=== PATIENT | female | born 1965 | race Caucasian/White ===

== ENCOUNTER → 2020-12-27 | Outpatient (CLI) | payer OTHER | LOC: MRI 10:21 → EDSTATUS 14:33 | PROVIDERS: ATTEND Internal Medicine | DX: M47.816 Spondylosis without myelopathy or radiculopathy, lumbar region (principal); M51.26 Other intervertebral disc displacement, lumbar region; M51.36 Other intervertebral disc degeneration, lumbar region; G89.29 Other chronic pain; M25.78 Osteophyte, vertebrae; M48.061 Spinal stenosis, lumbar region without neurogenic claudication ==

== ENCOUNTER → 2021-01-02 | Outpatient (CLI) | payer OTHER ==
[~2021-01-02] VITALS: Ht 175.3 cm; Wt 79.4 kg
[~2021-01-02] MED LIST: ADVIL200 M1 PO; LEXAPRO 10 MG T10 M2 PO; LYRICA 75 MG CA75 MG PO; MIRAPEX0.5 MG PO; NABUMETONE 500500 M2 PO; NEXIUM40 MG PO; ROPINIROLE HCL0.5 MG PO; STELARA90 MG/1 ML SUBQ
[2021-01-02 10:04] VITALS: BP 133/86
--- NOTE | 2021-01-02 10:37 | NUR ---
Pain Clinic Assessment: 1. History of Osteoarthritis: LOW BACK PSORIATIC History of Rheumatoid Arthritis: Not Applicable 2. Height: 5 ft. 9 in. 175.3 cm. Weight: 175.0 lb. oz. 79.380 kg. Patient's BMI: 25.8 3. Vital Signs: BP: 133/86 Pulse: 59 Resp: 14 Temp: 02 Sat: 97 ECG Mon: 4. Pain Intensity: 7 5. Fall Risk: Dizziness: N Needs help standing or walking: N Fallen in the last 3 months: N Fall risk comments: 6. Patient on Blood Thinner: None 7. History of Hypertension: N 8. Opioid Therapy greater than 6 weeks: N Opiate Contract Signed: 9. Risk Assessment Tool Provided: brook 10. Functional Assessment Tool: 11. Recreational Drug Use: Never Drug Type: Tobacco Use: Never Smoker Tobacco Type: Amount or Packs/day: How Many Years: Alcohol Use: Yes Frequency: Special Occasions Quant:
--- NOTE | 2021-01-10 10:47 | HPC ---
[facility] [address] [address] PAIN MANAGEMENT CONSULTATION Name: ISLAMSTEPHANIE SANDERSONNE Room #: REG [facility].#: [id number] Admission: 01/02/21 Attend Phys: Jacoby Cohen DO Discharge: Date of : 67 Report #: [id number] THIS REPORT FOR: cc: Franklyn Souza MD [facility] Franklyn Souza MD [facility] Jacoby Cohen DO ~ cc: Christi Antonio NP DATE OF SERVICE: 01/02/2021 REFERRING PHYSICIAN: Nurse practitioner, Christi Antonio. CHIEF COMPLAINT: Low back pain, bilateral buttock and posterolateral thigh pain. HISTORY OF PRESENT ILLNESS: As you know, the patient is a very pleasant 55-year-old female who reports ongoing low back pain, bilateral upper buttock pain that began 05/19/2020. She denies specific injury or trauma. The patient has had a history of lumbar radiculopathy in the past, which was treated conservatively with improvement in symptoms. She indicates that she was undergoing injection therapy in [place] with a pain management physician with benefit of improvement of greater than about 60-70%. She has relocated to the [facility] and discussed her case with her primary care team who referred the patient to our clinic to discuss interventional treatment options to address suspected lumbar radiculopathy. The patient other than trialing epidural injections has had no further treatments since she has returned to the [facility]. She states pain levels have intensified with the discontinuation of her medications provided through her pain management physician in [place]. The patient reports her pain today is continuous, steady and constant. She describes the pain as burning, aching, throbbing, numbness and tingling. Places current pain score 7/10, daily average at 8/10, worst pain has been is 8/10. The patient states the pain is exacerbated with movement and sitting; improves with lying on her stomach, epidural injections and medications. She has been referred to our service to discuss interventional treatment options to address suspected lumbar radiculopathy. PAST MEDICAL HISTORY: 1. Chronic colon problems. 2. Degenerative joint disease. 3. Osteoarthritis. 4. Chronic low back pain. PAST SURGICAL HISTORY: 1. Hysterectomy. 2. Muscle biopsies. 3. Prior to hysterectomy, [facility] [place] [address] PAIN MANAGEMENT CONSULTATION Name: STEPHANIE GUERRERO Room #: REG [facility].#: [id number] Admission: 01/02/21 Attend Phys: Jacoby Cohen DO Discharge: Date of : 67 Report #: [id number] SOCIAL HISTORY: The patient denies tobacco use. Denies IV or illicit drug use. Denies any chronic alcohol use. She is unaccompanied at today's visit. REVIEW OF SYSTEMS: Positive for weight gain, wearing corrective eyewear, nocturia, incontinence and dribbling to urine, breast pain, memory loss with confusion, chronic low back pain, and lower extremity pain with paresthesias. All other review of systems negative per 12-point review of systems other than those listed in history of present illness. Pain impact score 45/70, moderate interference of daily activities secondary to pain. ALLERGIES: No reported drug allergies. CURRENT MEDICATIONS: Ibuprofen 200 mg 4 times a day, Stelara 45 mg every 8 weeks subQ, omeprazole 40 mg per day, ropinirole 0.5 mg once a day, escitalopram 10 mg per day, Mirapex 0.5 mg p.r.n. IMAGING: No imaging available. PHYSICAL EXAMINATION: VITAL SIGNS: Blood pressure 133/86, pulse 59, respiratory rate 14 and unlabored. The patient is 97% on room air. Height 5 feet 9 inches tall, weight 175 pounds, BMI calculated 25.8. GENERAL: Well-developed, well-nourished, well-hydrated 55-year-old female appearing stated age, pain is rated today 7/10. HEENT: Normocephalic, atraumatic. Pupils equal, round and responsive to light. Extraocular muscles are intact. Sclerae nonicteric without injection. Cranial nerves 2-12 grossly intact. Speech is fluent. She is wearing a mask in compliance with COVID-19 regulations. LUNGS: Clear, no wheeze, rhonchi or rales. CARDIOVASCULAR: Regular. No appreciable gallop, no rub. ABDOMEN: Soft. EXTREMITIES: Show no clubbing, no cyanosis and no edema. MUSCULOSKELETAL: Lower extremity strength appears symmetrical 5/5. Muscle bulk and tone is equal and symmetrical in comparing lower extremities. Seated straight leg raising negative. Supine straight leg raising is positive. Tico's test is negative. Modified Gaenslen's positive for axial low back pain. Ankle clonus negative. Babinski is negative. Deep tendon reflexes appear symmetrical 2+/4. ASSESSMENT: 1. Lumbar radiculopathy. 2. Displacement of lumbar intervertebral disk with radiculopathy. 3. Lumbosacral spondylosis with radiculopathy. [address] [address] PAIN MANAGEMENT CONSULTATION Name: STEPHANIE GUERRERO Room #: REG [facility]#: [id number] Admission: 01/02/21 Attend Phys: Jacoby Cohen DO Discharge: Date of : 67 Report #: [id number] 4. Chronic intractable pain. PLAN: 1. Based on today's physical exam and history, the patient has provided the description the patient uses in regards to pain as well as location of symptoms, it would appear the patient is suffering from lumbar radiculopathy. The patient and I discussed the nature of lumbar radiculopathy and the treatment options that are available to address these. We discussed the following treatment options with the patient today. We discussed physical therapy, stretching exercises and core strengthening as a treatment approach. We discussed medication management utilizing neuropathic pain medications and a consistent nonsteroidal anti-inflammatory. We discussed lumbar epidural injections under fluoroscopic guidance, spinal cord stimulator therapy and ultimately surgical options to address symptoms. After reviewing risks and benefits of all proposed treatment options, the patient chose to move forward with adjustments in medication management. 2. The patient will be started on Lyrica 75 mg dose 1 tab p.o. at bedtime for 7 nights and increase to 2 tabs p.o. at bedtime of 150 mg p.o. at bedtime for 7 nights. If no improvement in symptoms, no side effects such as sleepiness, disorientation, confusion, mental slowing, then increase to 75 mg in the morning, continuing 150 mg at night for 7 more nights. If again no improvement in symptoms, no side effects, then increased to 150 mg b.i.d. The patient was given #120 of the Lyrica 75 mg tablets to begin the titration as directed. Prescription was sent via e-scribe to local pharmacy with plans to follow up in 1 month with no refills. 3. The patient will be started on nabumetone 500 mg dose. This will take the place of all other nonsteroidal anti-inflammatories. I have given her #90 tablets to take 3 times a day with meals. I have given her refills if the medication is effective. She will watch for dyspepsia, worsening of blood pressure, lower extremity edema with use of the medication. If she notes any side effects, discontinue immediately and call for further instructions. 4. We plan to see the patient back in followup visit in 1 month. At that time, discussed the efficacy of the Lyrica and the nabumetone provided today. I am hopeful the patient will see benefit, but we will keep you apprised of her response to this treatment and whether or not adjustments need to be made or interventional treatment will be recommended. 5. We wish to thank the referring nurse practitioner, Christi Antonio for the opportunity to see the patient in consultation. We will keep you apprised of response to treatment as we address lumbar radicular symptoms that are chronic in nature. Again, we wish to thank you for the opportunity to see the patient in consultation. <ELECTRONICALLY SIGNED> By: Jacoby Cohen DO 01/10/21 1047 [id number] 0000 Jacoby Cohen DO /nt
== END ==
LOC: PAIN 07:05
PROVIDERS: ATTEND Anesthesiology Pain Medicine
DX: M51.16 Intervertebral disc disorders with radiculopathy, lumbar region (principal); M47.27 Other spondylosis with radiculopathy, lumbosacral region; Z79.899 Other long term (current) drug therapy; Z79.891 Long term (current) use of opiate analgesic

== ENCOUNTER → 2021-01-10 | Outpatient (CLI) | payer OTHER ==
[~2021-01-10] VITALS: Ht 175.3 cm; Wt 83.7 kg
[2021-01-10 08:14] VITALS: BP 117/80
--- NOTE | 2021-01-10 08:28 | NUR ---
Pain Clinic Assessment: 1. History of Osteoarthritis: LOW BACK PSORIATIC History of Rheumatoid Arthritis: Not Applicable 2. Height: 5 ft. 9 in. 175.3 cm. Weight: 184.6 lb. oz. 83.734 kg. Patient's BMI: 27.2 3. Vital Signs: BP: 117/80 Pulse: 65 Resp: 16 Temp: 02 Sat: 97 ECG Mon: 4. Pain Intensity: 9 5. Fall Risk: Dizziness: N Needs help standing or walking: N Fallen in the last 3 months: N Fall risk comments: 6. Patient on Blood Thinner: None 7. History of Hypertension: N 8. Opioid Therapy greater than 6 weeks: N Opiate Contract Signed: 9. Risk Assessment Tool Provided: brook 10. Functional Assessment Tool: 11. Recreational Drug Use: Never Drug Type: Tobacco Use: Never Smoker Tobacco Type: Amount or Packs/day: How Many Years: Alcohol Use: Yes Frequency: Quant:
--- NOTE | 2021-01-10 11:50 | HPC ---
[facility] [address] [place] [address] PAIN MANAGEMENT CONSULTATION Name: CESARSTEPHANIE OROPEZA Room #: REG [facility].#: [id number] Admission: 01/10/21 Attend Phys: Jacoby Cohen DO Discharge: Date of : 67 Report #: [id number] THIS REPORT FOR: cc: Franklyn Souza MD [facility] Franklyn Souza MD [facility] Jacoby Cohen DO ~ cc: Jose Gayle MD DATE OF SERVICE: 01/10/2021 CHIEF COMPLAINT: Low back pain, bilateral upper buttock pain that began 05/19/2020. No specific injury or trauma. The patient has had history of a lumbar radiculopathy in the past treated conservatively with improvement in symptoms, undergoing epidural injections, medial branch nerve blocks, radiofrequency lesioning and medication management. We saw the patient in consultation per the request of the referring physician to discuss treatment options for continued lumbar radicular pain. We started the patient on Lyrica, but she has been unable to fill out medication due to an insurance snafu, which has led to the inability of the patient to receive medications from any other pharmacies than the one in [place] where she lived for years, but has now relocated to the [place] area and has been unable to obtain these medications. She wishes to discuss that today, but also to undergo the first in a series of requested lumbar epidural injections. She is placing pain at its greatest at 9/10. ALLERGIES: No reported drug allergies. CURRENT MEDICATIONS: Ibuprofen 200 mg 4 times a day, Stelara 45 mg subq per week, omeprazole 40 mg per day, ropinirole 0.5 mg once a day, escitalopram 10 mg once a day, Mirapex 0.5 mg p.r.n. SOCIAL HISTORY: The patient denies tobacco, IV or illicit drug use. Denies any chronic alcohol use. She is unaccompanied today. IMAGING: No new imaging available. PHYSICAL EXAMINATION: VITAL SIGNS: Blood pressure 117/80, pulse 65, respiratory rate 16 and unlabored. The patient 97% on room air. Height 5 feet 9 inches tall, weight 184.6 pounds, BMI calculated 27.2. GENERAL: Well-developed, well-nourished, well-hydrated 55-year-old female appearing stated age, pain is rated today around 9/10. HEENT: Normocephalic, atraumatic. Pupils equal, round and responsive. MUSCULOSKELETAL: She is intact to light touch from L1 through S2 dermatomes. Seated straight leg raising negative. Supine straight leg raising is positive on the left. Tico's test is negative. Modified Gaenslen's is positive for axial back pain. Ankle clonus negative. [place] [address] PAIN MANAGEMENT CONSULTATION Name: STEPHANIE GUERRERO Room #: REG [facility]#: [id number] Admission: 01/10/21 Attend Phys: Jacoby Cohen DO Discharge: Date of : 67 Report #: [id number] ASSESSMENT: 1. Lumbar radiculopathy. 2. Displacement of lumbar intervertebral disk with radiculopathy. 3. Lumbosacral spondylosis with radiculopathy. 4. Chronic intractable pain. PLAN: 1. The patient returns today in followup visit to undergo lumbar epidural injection under fluoroscopic guidance. The patient has been advised of the risks and the benefits of a lumbar epidural injection. These risks include, but are not necessarily limited to; bleeding, bruising, infection, worsening of pain, no relief of pain, temporary or permanent muscle weakness, temporary or permanent nerve damage, possible paralysis, post-dural puncture headache and . The patient states understood and wished to proceed. 2. We have resent the patient's Lyrica to our pharmacy here at [facility] in hopes of obtaining the Lyrica. We did receive information back from the pharmacy that there has been a lock down for this patient and that she can only receive the medications through the [facility] in [place]. The patient has relocated to our area and I believe this is an error on the insurance as patient has contacted her primary insurance, who has indicated that there is no capability for them to have the patient locked into a pharmacy of any type. This may be through the [facility] secondary insurance and we will attempt to contact them to remove this restrictions on the patient, allowing her to move her medications to the [place] area where she has relocated. We will hold the prescription at our pharmacy here at [facility] until which time this is able to be cleared up. We wish to have the patient on that Lyrica as quickly as possible as she noted benefit with the medication in the past. 3. We plan to see the patient back in followup visit in 1 month for possible next in the series of epidural injections. I did advise the patient we found some findings on the x-ray imaging to doing fluoroscopy was concerning of spina bifida occulta. We will be sending the patient for x-ray imaging just to confirm our diagnosis and to determine if there is pathologic movement in the L5-S1 level that needs to be addressed. The patient will undergo the x-ray imaging. We will find those results and contact the patient in regards to those. We plan to see her back in 1 month for an epidural injection and discussed medication management further. PROCEDURE NOTE DESCRIPTION OF PROCEDURE: L5-S1 interlaminar epidural steroid injection under fluoroscopic guidance. This is the first procedure of the first series that the patient is undergoing. [address] [address] PAIN MANAGEMENT CONSULTATION Name: STEPHANIE GUERRERO Room #: REG [facility].#: [id number] Admission: 01/10/21 Attend Phys: Jacoby Cohen DO Discharge: Date of : 67 Report #: [id number] After obtaining written consent, the patient was taken back to the fluoroscopy suite, placed in a prone position with pillow under the abdomen to decrease lumbar lordosis. The skin overlying the lumbosacral area was then prepped and draped in aseptic fashion. The L5-S1 vertebral interspace was then identified by AP fluoroscopy. The skin and subcutaneous tissue overlying the target site of injection was anesthetized with 3 mL 1% lidocaine. A 20-gauge 3-1/2 inch Tuohy needle was then advanced under fluoroscopic guidance towards the epidural space using a midline approach. The epidural space was identified using loss of resistance to air technique. After negative aspiration for heme or cerebrospinal fluid, a total of 1 mL of Omnipaque was injected. A lumbar epidurogram was confirmed using both AP and lateral fluoroscopy. After negative aspiration for heme or cerebrospinal fluid, 5 mL of a solution containing 2 mL 40 mg per mL 80 mg total triamcinolone along with 3 mL of lidocaine 1% was injected in increments. Contrast spread was noted posterior epidural space. The needle was then retracted approximately half way and needle tract flushed with 1 mL of 1% lidocaine. Needle was then removed. There were no apparent sensory or motor deficits in the lower extremity following the procedure. A sterile bandage was placed over the injection site. The heart rate, pulse, oximetry and blood pressure were continuously monitored after the procedure. There were no apparent complications. The patient tolerated the procedure well and was carefully escorted to the recovery room in stable condition. There were no apparent complications. After meeting discharge criteria, the patient was then discharged home. <ELECTRONICALLY SIGNED> By: Jacoby Cohen DO 01/10/21 1150 [id number] Jacoby Cohen DO /nt
== END | disposition home or self-care (01) ==
LOC: PAIN 06:48
PROVIDERS: ATTEND Anesthesiology Pain Medicine
DX: M51.16 Intervertebral disc disorders with radiculopathy, lumbar region (principal); M47.27 Other spondylosis with radiculopathy, lumbosacral region; G89.29 Other chronic pain; Z98.890 Other specified postprocedural states; Z79.899 Other long term (current) drug therapy

== ENCOUNTER → 2021-02-27 | Outpatient (CLI) | payer OTHER ==
[~2021-02-27] VITALS: Ht 175.3 cm; Wt 87.6 kg
[2021-02-27 09:34] VITALS: BP 110/73
--- NOTE | 2021-02-27 09:45 | NUR ---
Document as much information as known. If only year is known, type in year only. DO NOT type in UNKNOWN or NEVER!
--- NOTE | 2021-02-27 09:46 | NUR ---
Pain Clinic Assessment: 1. History of Osteoarthritis: LOW BACK PSORIATIC History of Rheumatoid Arthritis: Not Applicable 2. Height: 5 ft. 9 in. 175.3 cm. Weight: 193.2 lb. oz. 87.635 kg. Patient's BMI: 28.5 3. Vital Signs: BP: 110/73 Pulse: 66 Resp: 16 Temp: 02 Sat: 98 ECG Mon: 4. Pain Intensity: 7 5. Fall Risk: Dizziness: N Needs help standing or walking: N Fallen in the last 3 months: N Fall risk comments: 6. Patient on Blood Thinner: None 7. History of Hypertension: N 8. Opioid Therapy greater than 6 weeks: N Opiate Contract Signed: 9. Risk Assessment Tool Provided: brook 10. Functional Assessment Tool: 11. Recreational Drug Use: Never Drug Type: Tobacco Use: Never Smoker Tobacco Type: Amount or Packs/day: How Many Years: Alcohol Use: Yes Frequency: Quant:
--- NOTE | 2021-02-28 08:04 | HPC ---
[facility] [place] [address] PAIN MANAGEMENT CONSULTATION Name: SCIENTOLOGISTSTEPHANIE SANDERSONNE Room #: REG [facility].#: [id number] Admission: 02/27/21 Attend Phys: Jacoby Cohen DO Discharge: Date of : 67 Report #: [id number] THIS REPORT FOR: cc: Franklyn Souza MD [facility] Franklyn Souza MD [facility] Jacoby Cohen DO ~ cc: Franklyn Souza MD [facility] DATE OF SERVICE: 02/27/2021 REFERRING PHYSICIAN: Franklyn Souza MD CHIEF COMPLAINT: Low back pain, bilateral upper buttock pain. HISTORY OF PRESENT ILLNESS: As you know, the patient is a very pleasant 56-year-old female who has had a longstanding history of low back pain, bilateral lower extremity pain with paresthesias. She describes the pain more as a constant steady burning and aching sensation. Pain today is rated about 7/10. She states pain is exacerbated with movement and sitting, improves with lying down on her stomach and previous epidural injections. Most recent epidural injection according to the patient gave 95% improvement in overall pain lasting for almost 6 weeks with a slow and progressive return of symptoms. She returns today in followup visit requesting to undergo next in the series of lumbar epidural injections to address lumbar radiculopathy. The patient denies new injury or trauma that may have led to symptom development. She has had no changes in medication management that would preclude her from undergoing a lumbar epidural injection today. ALLERGIES: No known drug allergies. CURRENT MEDICATIONS: Lyrica, nabumetone, Stelara, omeprazole, escitalopram, and Mirapex. SOCIAL HISTORY: The patient denies tobacco, alcohol or IV illicit drug use. She is unaccompanied at today's visit. IMAGING: No new imaging available. PHYSICAL EXAMINATION: VITAL SIGNS: Blood pressure 110/73, pulse 66, respiratory rate 16 and unlabored. The patient 98% on room air. Height 5 feet 9 inches tall, weight 193.2 pounds, BMI calculated 28.5. GENERAL: Well-developed, well-nourished, well-hydrated 56-year-old female appearing stated age, pain is rated today around 7/10. HEENT: Normocephalic, atraumatic. Pupils equal, round and responsive. She is wearing a mask in compliance with COVID-19 regulations. EXTREMITIES: Show no clubbing, no cyanosis, no edema. [facility] [address] [place] [address] PAIN MANAGEMENT CONSULTATION Name: SCIENTOLOGISTSTEPHANIE SANDERSONNE Room #: REG [facility]#: [id number] Admission: 02/27/21 Attend Phys: Jacoby Cohen DO Discharge: Date of : 67 Report #: [id number] MUSCULOSKELETAL: Seated straight leg raising negative. Supine straight leg raising is positive on the left, approximately 60-degree angle. Ankle clonus negative. Babinski is negative. Modified Gaenslen's positive for axial low back pain. Lumbar provocation testing is met with slight increase in axial back pain with rotation and lateral flexion, mainly to the left. ASSESSMENT: 1. Lumbar radiculopathy. 2. Displacement of lumbar intervertebral disk with radiculopathy. 3. Lumbosacral spondylosis with radiculopathy. 4. Chronic intractable pain. PLAN: 1. The patient returns today in followup visit having noted excellent benefit with the lumbar epidural injection provided at her last visit. She states near 95% improvement in overall pain. She returns today in followup visit to undergo next in the series. The patient has been advised of the risks and the benefits of this procedure. These risks include, but are not necessarily limited to; bleeding, bruising, infection, worsening of pain, no relief of pain, also temporary or permanent muscle weakness, temporary or permanent nerve damage, possible paralysis, post-dural puncture headache and . The patient states understood and wished to proceed. 2. No medication changes made at today's visit. The patient will continue current medical therapy as prior prescribed. 3. Plan to see the patient back in followup visit on an as needed basis for the next in the series of lumbar epidural injections. We were pleased to see the patient has done well with the previous epidural injection and hopeful to see similar improvement with today's procedure. PROCEDURE NOTE DESCRIPTION OF PROCEDURE: L5-S1 interlaminar epidural steroid injection under fluoroscopic guidance. This is the second procedure of the first series that the patient is undergoing. After obtaining written consent, the patient was taken back to the fluoroscopy suite, placed in a prone position with pillow under the abdomen to decrease lumbar lordosis. The skin overlying the lumbosacral area was then prepped and draped in aseptic fashion. The L5-S1 vertebral interspace was then identified by AP fluoroscopy. The skin and subcutaneous tissue overlying the target site of injection was anesthetized with 3 mL 1% lidocaine. A 20-gauge 3-1/2-inch Tuohy needle was then advanced under fluoroscopic guidance towards the epidural space using a parasagittal approach. The epidural space was identified using loss of resistance to air technique. After negative [address] [address] PAIN MANAGEMENT CONSULTATION Name: STEPHANIE GUERRERO [facility] [id number] Admission: 02/27/21 Attend Phys: Jacoby Cohen DO Discharge: Date of : 67 Report #: [id number] aspiration for heme or cerebrospinal fluid, a total of 1 mL of Omnipaque was injected. A lumbar epidurogram was confirmed using both AP and lateral fluoroscopy. After negative aspiration for heme or cerebrospinal fluid, 5 mL of a solution containing 2 mL 40 mg/mL, 80 mg total triamcinolone along with 3 mL of lidocaine 1% was injected in increments. Contrast spread was noted in the posterior epidural space. The needle was then retracted approximately half way and needle tract flushed with 1 mL of 1% lidocaine. Needle was then removed. There were no apparent sensory or motor deficits in the lower extremity following the procedure. A sterile bandage was placed over the injection site. The heart rate, pulse, oximetry and blood pressure were continuously monitored after the procedure. There were no apparent complications. The patient tolerated the procedure well and was carefully escorted to the recovery room in stable condition. There were no apparent complications. After meeting discharge criteria, the patient was then discharged home. <ELECTRONICALLY SIGNED> By: Jacoby Cohen DO 02/28/21 [id number] Jacoby Cohen DO /nt
== END | disposition home or self-care (01) ==
LOC: PAIN 06:53
PROVIDERS: ATTEND Anesthesiology Pain Medicine
DX: M51.16 Intervertebral disc disorders with radiculopathy, lumbar region (principal); M47.27 Other spondylosis with radiculopathy, lumbosacral region; G89.29 Other chronic pain; Z98.890 Other specified postprocedural states; Z79.899 Other long term (current) drug therapy